=== PATIENT | male | born 1975 | race Caucasian/White ===

== ENCOUNTER 2018-10-06 16:01 | Inpatient (IN) | payer SELFPAY ==
[2018-10-06] MEDS ORDERED: D5 1/2 NS w/20 mEq KCL 0 ML ONE (16:37)
[2018-10-06] MEDS ORDERED: D5 1/2 NS w/20 mEq KCL 1,000 ML ONE (16:38)
[2018-10-06] MEDS ORDERED: Acetaminophen 500 MG TAB PO PRN (16:54)
[2018-10-06] MEDS ORDERED: Sodium Chloride 0.9% 1,000 ML IV PRN ×4 (16:54)
[2018-10-06] MEDS ORDERED: NS 0.9% w/ 20 MEQ KCL 1,000 ML IV PRN (16:54)
[2018-10-06] MEDS ORDERED: Dextrose 5 %-0.45 % NaCl 1,000 ML IV PRN (16:54)
[2018-10-06] MEDS ORDERED: CCU Electrolyte Replacement 1 EACH IVPB ONE (16:54)
[2018-10-06] MEDS ORDERED: Ondansetron PF 4 MG/2 ML Vial IVP PRN (16:54)
[2018-10-06] MEDS ORDERED: Ondansetron ODT 4 MG TAB PO PRN (16:54)
[2018-10-06] MEDS ORDERED: hydrALAZINE 20 MG/ML VIAL SLOW IVP PRN (16:54)
[2018-10-06] MEDS ORDERED: Potassium Phosphate 15 MMOL in Sodium Chloride 0.9% 250 ML 250 ML IV PRN (16:59)
[2018-10-06] MEDS ORDERED: Potassium Chloride 40 MEQ in Sodium Chloride 0.9% 250 ML 250 ML IVPB PRN (16:59)
[2018-10-06] MEDS ORDERED: Potassium Phosphate 12 MMOL in Sodium Chloride 0.9% 250 ML 250 ML IV PRN (16:59)
[2018-10-06] MEDS ORDERED: CCU ELECTROLYTE REPLACEMENT PROTOCOL FS PRN (16:59)
[2018-10-06] MEDS ORDERED: Magnesium 2 GM/50 ML 2 GM in Premix Bag 1 BAG IVPB PRN (16:59)
[2018-10-06] MEDS ORDERED: Potassium Chloride 40 MEQ in Premix Bag 1 BAG IVPB PRN (16:59)
[2018-10-06] MEDS ORDERED: Potassium Chloride 20 MEQ TAB PO PRN (16:59)
[2018-10-06] MEDS ORDERED: Magnesium Oxide 400 MG TAB PO PRN ×2 (16:59)
[2018-10-06] MEDS ORDERED: PHOS-NAK 1 PKT PACK PO PRN ×2 (16:59)
[2018-10-06] MEDS ORDERED: Potassium Phosphate 9 MMOL in Sodium Chloride 0.9% 100 ML IVPB PRN (16:59)
[2018-10-06] MEDS: HUMULIN R 100 UNITS in Sodium Chloride 0.9% 100 ML IVPB SCH (17:14)
[2018-10-06] MEDS: NS 0.9% w/ 20 MEQ KCL 1,000 ML IV PRN ×2 (17:15→18:46)
[2018-10-06 17:52] LABS: Anion Gap 19 mmol/L (10-20); BUN (Urea Nitrogen) 13 mg/dL (8.9-20.6); Calc. Creatinine Clearance 109 mL/min (70-130); Carbon Dioxide 12 mmol/L (22-29); Chloride 105 mmol/L (98-107); Estimated GFR-MDRD 66; Glucose 208 mg/dL (70-105); Potassium 3.6 mmol/L (3.5-5.1); Sodium 132 mmol/L (136-145)
[2018-10-06] MEDS: Famotidine 20 MG TAB PO SCH (19:51)
[2018-10-06 21:56] LABS: Anion Gap 14 mmol/L (10-20); BUN (Urea Nitrogen) 11 mg/dL (8.9-20.6); Calc. Creatinine Clearance 119 mL/min (70-130); Calcium 8.4 mg/dL (7.8-10.44); Carbon Dioxide 16 mmol/L (22-29); Chloride 106 mmol/L (98-107); Estimated GFR-MDRD 73; Glucose 187 mg/dL (70-105); Potassium 3.4 mmol/L (3.5-5.1); Sodium 133 mmol/L (136-145)
--- NOTE | 2018-10-06 22:47 | HP ---
PRIMARY CARE PROVIDER: [facility]. CHIEF COMPLAINT: Nausea, vomiting, dehydration. HISTORY OF PRESENT ILLNESS: This is a 42-year-old male, who initially presented to [facility] in [place], [place] complaining of several-day history of nausea, vomiting, and unable to hold down any significant food. The patient states he has felt weak with abdominal cramping over the last 2-3 weeks with extreme thirst and urinating frequently. The patient also complains of blurred vision over the last 3 to 5 days. The patient denies any known chronic medical conditions or family members with diabetes mellitus. The patient does admit that he used to drink a 6-pack of beer daily, but quit approximately 2-3 weeks ago after developing increased cramps, abdominal pain, as well as frequent urination. The patient denies any chemical exposure or illicit drug use. 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 The patient states his contract will end in approximately 6 weeks. In the emergency room, the patient underwent general evaluation with initial glucose noted over 350. The patient was positive for urine ketones and glucose with a total CO2 of 9 on basic metabolic profile testing. The patient was initiated on intravenous normal saline, lactated Ringer's x2 L and given 10 units of subcutaneous insulin. The patient was transferred to [facility] for further evaluation and treatment for diabetic ketoacidosis. PAST MEDICAL HISTORY: History of right lower extremity fracture. PAST SURGICAL HISTORY: Status post right lower extremity fracture repair. CURRENT MEDICATIONS: Reviewed and negative. ALLERGIES: NO KNOWN DRUG ALLERGIES. FAMILY HISTORY: No inheritable diseases per patient's report. SOCIAL HISTORY: The patient originally from [place], working under contract in the [facility] area. No tobacco or illicit drug use. Alcohol use up until 2-3 weeks prior to this evaluation, mainly a 6-pack of beer daily. REVIEW OF SYSTEMS: CONSTITUTIONAL: Negative for weight loss or gain, ability to conduct usual activities. SKIN: Negative for rash, itching. EYES: Negative for double vision, pain. ENT/MOUTH: Negative for nose bleeding, neck stiffness, pain, tenderness. CARDIOVASCULAR: Negative for palpitations, dyspnea on exertion, orthopnea. RESPIRATORY: Negative for shortness of breath, wheezing, cough, hemoptysis, fever or night sweats. GASTROINTESTINAL: Negative for poor appetite, abdominal pain, heartburn, nausea , vomiting, constipation, or diarrhea. GENITOURINARY: Negative for urgency, frequency, dysuria, nocturia. MUSCULOSKELETAL: Negative for pain, swelling. NEUROLOGIC/PSYCHIATRIC: Negative for anxiety, depression. ALLERGY/IMMUNOLOGIC: Negative for skin rash, bleeding tendency. Otherwise, negative except as stated per HPI. PHYSICAL EXAMINATION: VITAL SIGNS: Currently, blood pressure 142/106, pulse 103, respiratory rate 18, temperature 98.1 degrees Fahrenheit, O2 saturation 97% on room air. GENERAL APPEARANCE: This is a 42-year-old male, alert and oriented x3 , pleasant, conversant, in no acute distress. HEENT: Pupils are equal, round, reactive to light and accommodation. Extraocular muscles are intact. No scleral icterus. No conjunctival injection. Nares are patent. OP is clear. Oral mucosa dry. NECK: Supple. No cervical adenopathy. No thyromegaly. No carotid bruits. No JVD appreciated. Cervical spine with full active and passive range of motion. No meningeal signs noted. CHEST: Lungs are clear to auscultation bilaterally CARDIOVASCULAR: S1 and S2 without murmur, rub, or gallop. Tachycardia noted. ABDOMEN: Rounded, soft, nontender, and nondistended. Bowel sounds are positive in all 4 quadrants. No hepatosplenomegaly. No abdominal bruits. No rebound or guarding appreciated. EXTREMITIES: Warm and dry with fair turgor. No clubbing, cyanosis, or asymmetric edema appreciated. Pulses are palpable distally at the dorsalis pedis, posterior tibial, and popliteal arteries bilaterally. Capillary refill less than 2 seconds. NEUROLOGIC: Cranial nerves 2 through 12 are grossly intact. No focal or lateralizing signs appreciated. PERTINENT LAB AND X-RAY FINDINGS: Sodium 134, potassium 4.1, chloride 98, CO2 of 9, BUN 13, creatinine 0.9, glucose 386. Venous blood gas showed a pH of 7.056. Urinalysis positive for glucose, positive ketones, moderate blood with nitrite and leukocyte esterase negative. Beta hydroxybutyrate level 6.3. CBC showed a white blood cell count 8.3, hemoglobin 16.2, hematocrit 50.2, platelet count 297. Telemetry monitoring shows sinus tachycardia with heart rates in the low 100s. ASSESSMENT AND PLAN: 1. Diabetic ketoacidosis. The patient will be admitted to the intermediate care unit. We will continue diabetic ketoacidosis protocol with aggressive IV fluid hydration. Serial Accu-Cheks q.1 hour per protocol. Check A1c level in the a.m. and fasting lipid profile. Continue insulin infusion and monitor glucose trend. No current evidence of focal infectious process. Apparent new diagnosis of diabetes mellitus. 2. Nausea and vomiting secondary to #1. We will continue aggressive IV fluid hydration as stated previously. Antiemetics with Zofran. 3. Dehydration secondary to #1. Continue IV fluid hydration and monitor clinical response. Encourage increased free water intake orally as tolerated. 4. Elevated blood pressure. We will continue serial blood pressure monitoring. No formal diagnosis of hypertension previously. Hydralazine 10 mg IV q.4 hours p.r.n. systolic greater than or equal to 170. 5. Prophylaxis. SCDs while in bed. Pepcid 20 mg p.o. b.i.d. Dietitian consult. CODE STATUS: Full. Surrogate medical decision maker is the patient's mother, Saray Juarez. Job ID: [id number] MTDD
[2018-10-07] MEDS: D5 1/2 NS w/20 mEq KCL 1,000 ML IV PRN ×3 (00:02→07:46)
[2018-10-07 01:19] LABS: Anion Gap 11 mmol/L (10-20); BUN (Urea Nitrogen) 10 mg/dL (8.9-20.6); Calc. Creatinine Clearance 114 mL/min (70-130); Calcium 8.5 mg/dL (7.8-10.44); Carbon Dioxide 18 mmol/L (22-29); Chloride 107 mmol/L (98-107); Estimated GFR-MDRD 70; Glucose 234 mg/dL (70-105); Potassium 3.3 mmol/L (3.5-5.1); Sodium 133 mmol/L (136-145)
[2018-10-07] MEDS: HUMULIN R 100 UNITS in Sodium Chloride 0.9% 100 ML IVPB SCH (03:17)
[2018-10-07 06:50] LABS: Hemoglobin A1c 15.5 % (4.0-6.0)
[2018-10-07 07:06] LABS: Anion Gap 8 mmol/L (10-20); BUN (Urea Nitrogen) 9 mg/dL (8.9-20.6); Calc. Creatinine Clearance 124 mL/min (70-130); Calcium 8.6 mg/dL (7.8-10.44); Carbon Dioxide 19 mmol/L (22-29); Cardiac Risk 7.2 (Less than 4.5); Chloride 109 mmol/L (98-107); Cholesterol 188 mg/dl (< 200 Desired); Estimated GFR-MDRD 74; Glucose 162 mg/dL (70-105); HDL Cholesterol 26 mg/dL (>60 Neg Risk); LDL Cholesterol, Calculated 117 mg/dL; Potassium 3.2 mmol/L (3.5-5.1); Sodium 133 mmol/L (136-145); Triglycerides 227 mg/dL (Less than 150)
[2018-10-07] MEDS: Famotidine 20 MG TAB PO SCH (07:45)
[2018-10-07] MEDS ORDERED: Insulin Glargine 20 UNITS in Pre-Filled Syringe 1 EACH SC SCH (09:45)
[2018-10-07] MEDS ORDERED: Sodium Chloride 0.9% 1,000 ML IV SCH (10:00)
--- NOTE | 2018-10-07 10:29 | PDOC.PN ---
- Subjective Encounter Start Date: 10/07/18 Encounter Start Time: 10:25 Subjective: f/u DKA and new dx of DM II. Insulin gtt previously but feels better -: overall. Tolerated po intake this am. A1C - 15.5. - Objective Resuscitation Status - Order Detail: 10/06/18 16:50 Resuscitation Status Routine Resuscitation Status: FULL: Full Resuscitation MAR Reviewed: Yes Vital Signs & Weight: Vital Signs (12 hours) Temp 10/07/18 07:16 97.4 F L 10/07/18 04:00 97.7 F 10/07/18 00:00 98.0 F Weight Weight 218 lb 14.4 oz Most Recent Monitor Data Heart Rate from ECG 80 NIBP 142/84 NIBP BP-Mean 103 Respiration from ECG 15 SpO2 96 I&O: 10/06/18 10/07/18 10/08/18 06:59 06:59 06:59 Intake Total 4620 1200 Output Total 1200 900 Balance 3420 300 Result Diagrams: 10/07/18 06:24 Additional Labs: Accuchecks 10/07/18 10/07/18 10/07/18 10:02 09:24 08:24 POC Glucose 251 H 266 H 175 H 10/07/18 10/07/18 10/07/18 07:18 05:57 05:05 POC Glucose 154 H 184 H 187 H 10/07/18 10/07/18 10/07/18 04:00 03:11 02:10 POC Glucose 211 H 201 H 217 H 10/07/18 10/07/18 10/06/18 01:09 00:03 23:11 POC Glucose 218 H 234 H 243 H 10/06/18 10/06/18 10/06/18 21:58 21:04 19:59 POC Glucose 184 H 187 H 124 H 10/06/18 10/06/18 10/06/18 19:12 18:08 17:26 POC Glucose 139 H 217 H 212 H 10/06/18 16:21 POC Glucose 234 H Laboratory Tests 10/06/18 10/06/18 10/06/18 17:23 21:22 21:22 Sodium 133 L Potassium 3.4 L Hemoglobin A1c Triglycerides Cholesterol LDL Cholesterol, Calc HDL Cholesterol B-Hydroxybutyrate 5.73 H 2.97 H 10/07/18 10/07/18 10/07/18 00:53 06:24 06:24 Sodium 133 L Potassium 3.3 L Hemoglobin A1c 15.5 H Triglycerides 227 H Cholesterol 188 LDL Cholesterol, Calc 117 HDL Cholesterol 26 B-Hydroxybutyrate EKG Reviewed by me: Yes (Tele - SR) Phys Exam - Physical Examination Constitutional: NAD HEENT: PERRLA, sclera anicteric, oral pharynx no lesions Neck: no nodes, no JVD, supple, full ROM Respiratory: no wheezing, no rales, no rhonchi, clear to auscultation bilateral S1, S2 Cardiovascular: RRR, no significant murmur, no rub, gallop Gastrointestinal: soft, non-tender, no distention, positive bowel sounds Musculoskeletal: no edema, pulses present Neurological: normal sensation, moves all 4 limbs Psychiatric: A&O x 3 Skin: normal turgor, cap refill <2 seconds Dx/Plan (1) DKA (diabetic ketoacidosis) Code(s): E11.10 - TYPE 2 DIABETES MELLITUS WITH KETOACIDOSIS WITHOUT COMA Status: Acute Qualifiers: Diabetes mellitus type: type 2 Comment: Continue DKA protocol, start Lantus 20u sc x 1 now then 15u sc BID, ISS , DM teaching, ADA, continue IVF NS (2) Diabetes mellitus type 2, uncontrolled Code(s): E11.65 - TYPE 2 DIABETES MELLITUS WITH HYPERGLYCEMIA Status: Acute Comment: New dx, see above, DM teaching/education, ADA, serial accuchecks, ISS (3) Hyponatremia Code(s): E87.1 - HYPO-OSMOLALITY AND HYPONATREMIA Status: Acute Comment: Secondary to hyperglycemia, serial Na+ monitoring, IVF NS (4) Nausea & vomiting Code(s): R11.2 - NAUSEA WITH VOMITING, UNSPECIFIED Status: Acute Comment: Resolving, resume ADA diet (5) Hyperlipidemia Code(s): E78.5 - HYPERLIPIDEMIA, UNSPECIFIED Status: Chronic Comment: Start Lipitor 20mg HS - Plan aids social worker, out of bed/ambulate Stable overall -: Transition to IVF NS -: Start Lantus 20u sc now then 15u sc BID -: DM teaching/education -: AM lab: BMP, CBC * Likely home in 24-48h
[2018-10-07] MEDS ORDERED: Dextrose 50% Abboject 50 ML SYRINGE SLOW IVP PRN (10:35)
[2018-10-07] MEDS ORDERED: Dextrose 5% in Water 1,000 ML IV PRN (10:35)
--- NOTE | 2018-10-07 17:29 | CON ---
DATE OF CONSULTATION: 10/07/2018 SERVICE: Pulmonary Medicine. REASON FOR CONSULTATION: [facility] patient. HISTORY OF PRESENT ILLNESS: The patient is a 42-year-old white male with past medical history significant for nothing. He does not have a diagnosis of diabetes. That being said, for the last 2-1/2 weeks, he has had polydipsia and polyphagia. Otherwise, he is in his usual state of health until about 2 days prior to presentation when he started having nausea and vomiting. He was not able to keep any p.o. down and became horrendously dehydrated. He continued to make urine. This ultimately slowed down on the day of presentation. He was discovered to have elevated blood sugars, and chemistries consistent with diabetic ketoacidosis. He was tucked in the [facility] and initiated on insulin drip. He was given significant amounts of fluids and resuscitation. Ultimately, this morning he feels very good. He denies any current cough, chest pain, fevers, chills, nausea, or vomiting. His appetite has returned. He is able to keep his lunch down today. PAST MEDICAL HISTORY: Diabetes mellitus, unspecified type, new diagnosis. PAST SURGICAL HISTORY: Repair of right lower extremity fracture. FAMILY HISTORY: Noncontributory. SOCIAL HISTORY: Up until 2 weeks ago, he drank about a 6-pack of beer on a daily basis. He denies any tobacco or illicit drug use. He has no exposure to chemicals, dust, asbestos, or tuberculosis. ALLERGIES: NO KNOWN DRUG ALLERGIES. MEDICATIONS: List of his inpatient medications was reviewed. Multiple updates were made. REVIEW OF SYSTEMS: General; head, eyes, ears, nose, and throat; cardiovascular, respiratory, GI, , musculoskeletal, neurologic, and skin are negative, except as mentioned in the HPI. PHYSICAL EXAMINATION: VITAL SIGNS: Afebrile, pulse 80, blood pressure 142/84, respirations 15, and saturation 96% on room air. GENERAL: The patient is awake and alert, in no apparent distress. LUNGS: Decent air entry. There is no prolonged expiratory phase, wheezing, crackles, or rhonchi present. HEART: Normal rate and regular. ABDOMEN: Soft, nontender, nondistended. Bowel sounds are positive. MUSCULOSKELETAL: No cyanosis or clubbing. No pitting in the bilateral lower extremities. NEUROLOGIC: Grossly nonfocal. LABORATORY DATA: Bicarb 19 with a normal anion gap. Potassium 3.2 as of this morning. Basic metabolic profile is otherwise unremarkable with a creatinine that is downtrending from 1.2 down to 1.09. Hemoglobin A1c 15.5. Beta- hydroxybutyrate 2.97. ASSESSMENT: 1. Diabetic ketoacidosis. 2. Diabetes mellitus, type unspecified, new diagnosis. 3. Dehydration, resolved. 4. Hypertension, suspected. DISCUSSION AND PLAN: We will give him subcu insulin and discontinue his insulin drip. I will start metformin twice daily. At this point, he is stable for transition out of the [facility] to the medical unit. He will need to follow up with primary care physician and/or Endocrinology in the outpatient setting to determine whether or not long-acting insulin is in his future. 70 minutes have been devoted to this patient in various activities. I personally reviewed all imaging studies and laboratory data noted within this document. For fifty percent of this time, I was interacting with the patient at the bedside or coordinating care with the care team. For the remainder of the time I was immediately available to the patient in the hospital unit. Job ID: [id number] MTDD
[2018-10-07] MEDS: metFORMIN 500 MG TAB PO SCH (17:39)
[2018-10-07] MEDS: HumaLOG 300 UNITS/3 ML VIAL SC PRN ×2 (17:40→20:31)
[2018-10-07] MEDS: Atorvastatin Calcium 20 MG TAB PO SCH (20:31)
[2018-10-07] MEDS ORDERED: Insulin Glargine 15 UNITS in Pre-Filled Syringe 1 EACH SC SCH (21:00)
[2018-10-08 05:34] LABS: Anion Gap 12 mmol/L (10-20); BUN (Urea Nitrogen) 9 mg/dL (8.9-20.6); Calc. Creatinine Clearance 144 mL/min (70-130); Calcium 8.7 mg/dL (7.8-10.44); Carbon Dioxide 22 mmol/L (22-29); Chloride 107 mmol/L (98-107); Estimated GFR-MDRD 88; Glucose 266 mg/dL (70-105); Potassium 3.6 mmol/L (3.5-5.1); Sodium 137 mmol/L (136-145)
[2018-10-08 05:48] LABS: Band 5 % (5-11); Eosinophils 4 % (0-10); Hemoglobin 11.5 g/dL (14.0-18.0); Lymphocytes 36 % (21-51); MDiff Complete? YES; Mean Corpuscular Hemoglobin 23.6 pg (27.0-31.0); Mean Corpuscular Volume 71.4 fL (78.0-98.0); Mean Platelet Volume 7.9 fL (7.4-10.4); Microcytosis SLIGHT = 6-15 cells (100X) (0-5/hpf); Monocytes 1 % (0-10); Neutrophil 54 % (42-75); Platelet Count 193 thou/uL (130-400); Red Blood Cell (RBC) Count 4.87 mill/uL (4.70-6.10); White Blood Cell (WBC) Count 5.5 thou/uL (4.8-10.8)
[2018-10-08] MEDS: metFORMIN 500 MG TAB PO SCH ×2 (08:50→17:04)
[2018-10-08] MEDS ORDERED: Insulin Glargine 15 UNITS in Pre-Filled Syringe 1 EACH SC SCH (09:00)
[2018-10-08] MEDS: HumaLOG 300 UNITS/3 ML VIAL SC PRN ×3 (10:53→21:00)
--- NOTE | 2018-10-08 11:50 | PDOC.PN ---
- Subjective Encounter Start Date: 10/08/18 Encounter Start Time: 11:50 Subjective: f/u for new-dx DMII and DKA. Glucose trend remains labile but pt -: states he feels better overall. Receiving Lantus/Metformin. - Objective Resuscitation Status - Order Detail: 10/06/18 16:50 Resuscitation Status Routine Resuscitation Status: FULL: Full Resuscitation MAR Reviewed: Yes Vital Signs & Weight: Vital Signs (12 hours) Temp 10/08/18 11:37 97.6 F 10/08/18 07:23 97.6 F 10/08/18 03:09 97.5 F L Weight Weight 218 lb 14.4 oz Most Recent Monitor Data Heart Rate from ECG 83 NIBP 129/73 NIBP BP-Mean 91 Respiration from ECG 16 SpO2 99 I&O: 10/07/18 10/08/18 10/09/18 06:59 06:59 06:59 Intake Total 4620 4170 Output Total 1200 4750 Balance 3420 -580 Result Diagrams: 10/08/18 04:57 10/08/18 04:57 Additional Labs: Accuchecks 10/08/18 10/08/18 10/07/18 10:13 05:57 20:09 POC Glucose 367 H 246 H 246 H 10/07/18 10/07/18 10/07/18 16:50 14:45 12:24 POC Glucose 243 H 218 H 104 Laboratory Tests 10/06/18 10/06/18 10/06/18 17:23 21:22 21:22 Sodium 133 L Potassium 3.4 L Hemoglobin A1c Triglycerides Cholesterol LDL Cholesterol, Calc HDL Cholesterol B-Hydroxybutyrate 5.73 H 2.97 H 10/07/18 10/07/18 10/07/18 00:53 06:24 06:24 Sodium 133 L Potassium 3.3 L Hemoglobin A1c 15.5 H Triglycerides 227 H Cholesterol 188 LDL Cholesterol, Calc 117 HDL Cholesterol 26 B-Hydroxybutyrate EKG Reviewed by me: Yes (Tele - SR) Phys Exam - Physical Examination Constitutional: NAD HEENT: PERRLA, sclera anicteric, oral pharynx no lesions Neck: no nodes, no JVD, supple, full ROM Respiratory: no wheezing, no rales, no rhonchi, clear to auscultation bilateral S1, S2 Cardiovascular: RRR, no significant murmur, no rub, gallop Gastrointestinal: soft, non-tender, no distention, positive bowel sounds Musculoskeletal: no edema, pulses present Neurological: normal sensation, moves all 4 limbs Psychiatric: A&O x 3 Skin: normal turgor, cap refill <2 seconds Dx/Plan (1) DKA (diabetic ketoacidosis) Code(s): E11.10 - TYPE 2 DIABETES MELLITUS WITH KETOACIDOSIS WITHOUT COMA Status: Acute Qualifiers: Diabetes mellitus type: type 2 Comment: Increase Lantus 20u sc BID, ISS, DM teaching, ADA, continue IVF NS, Metformin 500mg BID (2) Diabetes mellitus type 2, uncontrolled Code(s): E11.65 - TYPE 2 DIABETES MELLITUS WITH HYPERGLYCEMIA Status: Acute Comment: New dx, see above, DM teaching/education, ADA, serial accuchecks, ISS (3) Hyponatremia Code(s): E87.1 - HYPO-OSMOLALITY AND HYPONATREMIA Status: Acute Comment: Secondary to hyperglycemia, serial Na+ monitoring, IVF NS (4) Nausea & vomiting Code(s): R11.2 - NAUSEA WITH VOMITING, UNSPECIFIED Status: Acute Comment: Resolving, resume ADA diet (5) Hyperlipidemia Code(s): E78.5 - HYPERLIPIDEMIA, UNSPECIFIED Status: Chronic Comment: Start Lipitor 20mg HS - Plan social worker health services, out of bed/ambulate, DVT proph w/SCDs Stable currently -: Increase Lantus 20u sc BID -: Metformin 500mg BID -: DM teaching/Insulin administration/mgmt -: Transfer to Medical floor * AM lab: BMP * Likely home in 24h
[2018-10-08] MEDS ORDERED: Insulin Glargine 20 UNITS in Pre-Filled Syringe 1 EACH SC SCH ×2 (11:54→21:00)
[2018-10-08 16:05] VITALS: BMI 30.5
[2018-10-08] MEDS: Atorvastatin Calcium 20 MG TAB PO SCH (20:57)
[2018-10-09] MEDS: HumaLOG 300 UNITS/3 ML VIAL SC PRN ×3 (06:01→12:14)
[2018-10-09 06:49] LABS: Anion Gap 10 mmol/L (10-20); BUN (Urea Nitrogen) 9 mg/dL (8.9-20.6); Calc. Creatinine Clearance 155 mL/min (70-130); Calcium 9.2 mg/dL (7.8-10.44); Carbon Dioxide 27 mmol/L (22-29); Chloride 105 mmol/L (98-107); Estimated GFR-MDRD Greater than 90; Glucose 270 mg/dL (70-105); Potassium 3.1 mmol/L (3.5-5.1); Sodium 139 mmol/L (136-145)
[2018-10-09] MEDS: metFORMIN 500 MG TAB PO SCH ×2 (08:46→15:54)
[2018-10-09] MEDS ORDERED: Potassium Chloride 20 MEQ TAB PO SCH (09:00)
--- NOTE | 2018-10-09 14:44 | PDOC.PN ---
- Subjective Encounter Start Date: 10/09/18 Encounter Start Time: 14:42 Mr. Juarez was seen today in follow-up of New onset DM and DKA. He does not have any complaints. - Objective Resuscitation Status - Order Detail: 10/06/18 16:50 Resuscitation Status Routine Resuscitation Status: FULL: Full Resuscitation MAR Reviewed: Yes Vital Signs & Weight: Vital Signs (12 hours) Temp Pulse Resp BP Pulse Ox 10/09/18 08:00 98 10/09/18 07:40 97.8 F 72 16 127/79 98 10/09/18 06:25 98.0 F 69 20 124/74 95 Weight Admit Weight 218 lb Weight 218 lb 14.4 oz Most Recent Monitor Data Heart Rate from ECG 81 NIBP 139/72 NIBP BP-Mean 94 Respiration from ECG 16 SpO2 99 I&O: 10/08/18 10/09/18 10/10/18 06:59 06:59 06:59 Intake Total 4170 3980 Output Total 4750 400 Balance -580 3580 Result Diagrams: 10/08/18 04:57 10/09/18 05:53 Additional Labs: Accuchecks 10/09/18 10/09/18 10/08/18 11:47 05:59 20:20 POC Glucose 218 H 265 H 262 H 10/08/18 17:01 POC Glucose 236 H Phys Exam - Physical Examination HEENT: PERRLA Respiratory: no wheezing, no rales, no rhonchi, clear to auscultation bilateral Cardiovascular: RRR, no significant murmur, no rub Gastrointestinal: soft, non-tender, no distention, positive bowel sounds Musculoskeletal: no edema, pulses present Neurological: non-focal, normal sensation, moves all 4 limbs Dx/Plan (1) DKA (diabetic ketoacidosis) Code(s): E11.10 - TYPE 2 DIABETES MELLITUS WITH KETOACIDOSIS WITHOUT COMA Status: Acute Qualifiers: Diabetes mellitus type: type 2 Comment: Increase Lantus 20u sc BID, ISS, DM teaching, ADA, continue IVF NS, Metformin 500mg BID (2) Diabetes mellitus type 2, uncontrolled Code(s): E11.65 - TYPE 2 DIABETES MELLITUS WITH HYPERGLYCEMIA Status: Acute Comment: New dx, see above, DM teaching/education, ADA, serial accuchecks, ISS (3) Hyperlipidemia Code(s): E78.5 - HYPERLIPIDEMIA, UNSPECIFIED Status: Chronic Comment: Start Lipitor 20mg HS - Plan * DKA- resolved * DM- blood glucose is stable * Hyperlipidemia- continue Lipitor * Stable for discharge home..
[2018-10-09 16:09] VITALS: BP 133/66; TEMP 98.2
--- NOTE | 2018-10-10 04:16 | DIS ---
DATE OF ADMISSION: 10/06/2018 DATE OF DISCHARGE: 10/09/2018 PRIMARY CARE PHYSICIAN: The patient does not have a primary care physician. DISCHARGE DISPOSITION: Home. DISCHARGE DIAGNOSES: 1. Diabetic ketoacidosis, type 2, resolved. 2. Diabetes mellitus type 2, new onset. 3. Dyslipidemia. DISCHARGE MEDICATIONS: Include; 1. Lantus insulin 20 units subcu at bedtime. 2. Lipitor 20 mg at bedtime. 3. Metformin 500 mg twice daily. CODE STATUS: Full code. ALLERGIES: NO KNOWN DRUG ALLERGIES. HOSPITAL COURSE: Mr. Juarez is a pleasant, 42-year-old gentleman who presented to the emergency room with complaints of nausea and vomiting. He was evaluated in the emergency room and found to be in DKA. He was admitted and started on IV fluids as well as DKA protocol. He has no known history of diabetes mellitus and therefore is a new onset. He was instructed on diabetes care as well as the use of insulin. He will also be placed on metformin as well. After the patient was clinically improved and the DKA had resolved, he was able to be discharged home to have close outpatient followup. The patient does travel quite extensively for his job, spending sometimes up to a month away from home periodically. Therefore, he will follow up locally here at [facility] initially and then back in [place] where he is from. Job ID: [id number]
== END 2018-10-09 16:03 | disposition home or self-care (01) | DRG 638 ==
LOC: IMCU/EMU 16:01 → T4-B 10-08 14:19
PROVIDERS: ADMIT Internal Medicine; ATTEND Internal Medicine
DX: E11.10 Type 2 diabetes mellitus with ketoacidosis without coma (principal); E87.1 Hypo-osmolality and hyponatremia; E86.0 Dehydration; E11.65 Type 2 diabetes mellitus with hyperglycemia; I10 Essential (primary) hypertension; E78.5 Hyperlipidemia, unspecified
CPT/HCPCS: 36415; 36416; 80048; 80061; 82010; 83036; 85007; 85027; J1815; J1825; J3480; J3490